=== PATIENT | female | born 1995 | race Caucasian/White ===

== ENCOUNTER 2016-12-07 11:55 | Inpatient (IN) | payer MEDICAID ==
--- NOTE | 2016-12-07 14:31 | PCM.LDHP ---
L&D History of Present Illness - General Date of Service: 12/07/16 Admit Problem/Dx: Admission Diagnosis/Problem Admission Diagnosis/Problem Source of Information: Patient History Limitations: Reports: No limitations - History of Present Illness Introduction:: Patient presents with chief complaint of contractions that started on the evening of 12/06/16. The time between them has varied but they were strong enough to keep her awake throughout the night. She rates them as a 3/10 on the pain scale. During monitoring contractions varied from every 3 to every 5 minutes. She reports having some bloody show this morning but no other vaginal leakage or change in discharge. She was seen at [facility] today where Dr. Romero performed membrane stripping. Location, : Reports: Uterus Quality: Reports: Ache Severity: moderate Associated Symptoms: Reports: vaginal bleeding. Denies: vaginal discharge, vaginal fluid - Related Data Allergies/Adverse Reactions: Allergies Allergy/AdvReac Type Severity Reaction Status Date / Time No Known Allergies Allergy Verified 12/07/16 12:12 Home Medications: Home Meds PNV95/Ferrous Fumarate/FA [ Tablet] 1 each PO DAILY 06/20/15 [History] Folic Acid [Folic Acid] 1 mg PO DAILY 11/20/16 [History] Past Medical History - Past Health History Medical/Surgical History: Denies Medical/Surgical History HEENT History: Reports: Other (see below) (recent history of acute lymphadenitis of the neck) Respiratory History: Reports: Asthma, Other (see below) Other Respiratory History: not treated for asthma since childhood Genitourinary History: Reports: Renal calculus, UTI, recurrent [employer] History: Reports: , Other (see below) (hx of dysmenorrhea) : 2 Para: 1 Neurological History: Reports: Migraines Psychiatric History: Reports: Anxiety Endocrine/Metabolic History: Reports: Other (see below) (hx of abnormal thyroid blood test) Hematologic History: Reports: Folic acid, Other (see below) Other Hematologic History: Carmen-[place] Virus 10/2016 Immunologic History: Reports: None - Infectious Disease History Infectious Disease History: Reports: Chicken pox, Other (see below) Other Infectious Disease History: unsure of other childhood diseases - Past Surgical History HEENT Surgical History: Reports: Other (see below) Other HEENT Surgeries/Procedures: biopsy of lymphnode Female Surgical History: Reports: None Oncologic Surgical History: Reports: Other (see below) Other Oncologic Surgeries/Procedures: biopsy of lymnode in Left neck Social & Family History - Family History Family Medical History: Noncontributory HEENT: Reports: Hearing impairment GI: Reports: Cirrhosis Neurological: Reports: Alzheimers disease, Parkinson's Endocrine/Metabolic: Reports: Other (see below) (mother has history of thyroid disease) Other Endocrine/Metabolic Family History: pt's mother has "thyroid problems" Oncologic: Reports: Breast, Other (see below) (Father from cancer.) - Tobacco Use Smoking Status *Q: Never Smoker Second Hand Smoke Exposure: No - Caffeine Use Caffeine Use: Reports: None - Recreational Drug Use Recreational Drug Use: No Drug Use in Last 12 Months: No Recreational Drug Type: Reports: Marijuana/Hashish Recreational Drug Use Frequency: Not Used In Over 6 Months - Living Situation & Occupation Living situation: Reports: with significant other 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 Working at [employer]--fulltime before baby born, now part- time in the mornings. Bud's [employer] watches Gisela at that time. Mom--Aliza Nesbitt; father is . Together since 2011. Delightful couple. SO: Bud, community services officer, born with a cleft lip--Dr. Maldonado did Z-plasty on him. Cell number: [phone]; [facility] 06-05-15. 08-13-15 Bud and his dad were elk hunting recently--Bud got his elk, but his dad didn't. b. Gisela born by VAVD. b. . 05-21-16 Expecting second child together on 12-18-16. [facility] H&P Review of Systems - Review of Systems: Review Of Systems: See Below General: Reports: no symptoms. Denies: fever, chills HEENT: Reports: no symptoms Pulmonary: Reports: No Symptoms. Denies: Shortness of Breath, Wheezing, Cough Cardiovascular: Reports: no symptoms Gastrointestinal: Reports: Constipation (some throughout last part of ) . Denies: Diarrhea, Nausea, Vomiting Genitourinary: Reports: no symptoms. Denies: dysuria, frequency, burning Musculoskeletal: Reports: no symptoms Skin: Reports: no symptoms Psychiatric: Reports: no symptoms Neurological: Reports: No Symptoms Hematologic/Lymphatic: Reports: no symptoms Immunologic: Reports: no symptoms L&D Exam - Exam Exam: See Below - Vital Signs Weight: 132 lb - OB Specific Contraction Intensity: Mild to Moderate movement: active heart tones: present heart tones per min: 140 Heart Rate (FHR) Variability: Moderate (6-25 bmp) Presentation: Vertex - Haider Score Haider Score Effacement: 51-70% Haider Score Dilation: 3-4 cm Haider Score 's Station: -2 - Exam General: alert, oriented HEENT: Conjunctiva clear, EOMI, Hearing intact, Mucosa moist & pink, Pupils reactive Neck: supple, trachea midline Lungs: Clear to auscultation, Normal respiratory effort Cardiovascular: regular rate, regular rhythm Abdomen: normal bowel sounds, soft Rectal Exam: Deferred Back Exam: normal inspection, full range of motion Extremities: normal inspection Skin: warm, dry, intact Neurological: cranial nerves intact Psychiatric: alert, normal affect, normal mood - Problem List (1) Blood type B- SNOMED Code(s): 603982246 ICD Code: Z67.21 - TYPE B BLOOD, RH NEGATIVE Status: Acute Current Visit : Yes (2) SNOMED Code(s): 74753611 ICD Code: Z33.1 - STATE, INCIDENTAL Status: Acute Current Visit : Yes Qualifiers: Weeks of gestation: 38 weeks Qualified Code(s): Z3A.38 - 38 weeks gestation of (3) Normal labor SNOMED Code(s): 62665485 ICD Code: O80 - ENCOUNTER FOR FULL-TERM UNCOMPLICATED DELIVERY; Z37.9 - OUTCOME OF DELIVERY, UNSPECIFIED Status: Acute Current Visit: Yes (4) Rubella immune SNOMED Code(s): 056316698 ICD Code: Z78.9 - OTHER SPECIFIED HEALTH STATUS Status: Acute Current Visit: Yes Problem List Initiated/Reviewed/Updated: Yes Orders Last 24hrs: Active Orders 24 hr Category Date Time Status OB Check [OM.PC] Click To Edit Care 12/07/16 12:00 Ordered Regular Diet [DIET] Diet 12/07/16 Lunch Active Assessment/Plan Comment:: Assesment 21 year old female at 38w3d Blood type B- Rubella immune RPR nonreactive HBsAg nonreactive hep C non reactive GBS negative Recent history of neck mass that was EBV+ followed by heme-onc and ENT clinically improved. Plan 1. Begin cares per unit protocol 2. Labs as ordered. 3. AROM if necessary 4. Pain management as needed - Patient indicates she would like an intrathecal when the times comes Mckenna Kwong [facility]
[2016-12-07] MEDS ORDERED: Sodium Chloride 0.9% 10 ML Syringe FLUSH PRN (14:46)
[2016-12-07] MEDS ORDERED: Misoprostol 400 MCG (4 X 100 MCG TAB) RECTAL PRN (14:46)
[2016-12-07] MEDS ORDERED: Carboprost Tromethamine 250 MCG/1 ML Amp IM PRN (14:46)
[2016-12-07] MEDS ORDERED: Ondansetron 4 MG/2 ML SDV IV PRN (14:46)
[2016-12-07] MEDS ORDERED: Acetaminophen 325 MG Tab PO PRN (14:46)
[2016-12-07] MEDS ORDERED: Methylergonovine 0.2 MG/1 ML Amp IM PRN (14:46)
[2016-12-07] MEDS ORDERED: Lidocaine 1% 30 ML SDV INJECT PRN (14:46)
[2016-12-07] MEDS ORDERED: Lactated Ringers 500 ML IV ONE (14:46)
[2016-12-07] MEDS ORDERED: Oxytocin/Normal Saline 30 UNIT/500 ML BAG IV SCH (15:00)
[2016-12-07] MEDS: Lactated Ringers 1,000 ML IV SCH ×2 (21:27→22:47)
[2016-12-07] MEDS ORDERED: Sodium Chloride 0.9% 10 ML Syringe ONE (23:00)
[2016-12-07] MEDS ORDERED: fentaNYL 100 MCG/2 ML SDV ONE (23:05)
--- NOTE | 2016-12-07 23:42 | PCM.SN ---
- Free Text/Narrative Note: called to place intrathecal anesthetic for this laboring mom: After identifying, time out, with patient in sitting postition, sterile prep and drape. Skin wheal at L3-4 with 1% lidocaine, LP X 1 at L3-4 with 24 gauge pencan spinal needle. Positive free flowing CSF, no heme, no paresthesia, then .8ML (6mg)mpf hyperbaric spinal 7.5% marcaine, plus 10 mcg mpf sufenta, plus 10 mcg mpf fentanyl, plus 1.2 ml preservative free NaCl and 0.1ml epi injected intrathecal. Pt reported pain relief during next contractions. Preop VS = T 98.9, 91/53, Hr 70's FHT's 130's WBC 10.3, PLT 273
[2016-12-08] MEDS ORDERED: diphenhydrAMINE 50 MG/ML SDV IVPUSH PRN (00:20)
[2016-12-08] MEDS: Lactated Ringers 1,000 ML IV SCH (00:34)
[2016-12-08] MEDS ORDERED: Oxytocin 10 Units/1 ML SDV IM PRN (02:56)
[2016-12-08] MEDS ORDERED: Benzocaine/Menthol 20%-0.5% Spray 56 GM Canister TOP PRN (02:56)
[2016-12-08] MEDS ORDERED: Simethicone 80 MG Tab.Chew PO PRN (02:56)
[2016-12-08] MEDS ORDERED: Sodium Chloride 0.9% 10 ML Syringe FLUSH PRN (02:56)
--- NOTE | 2016-12-08 02:57 | PCM.DEL ---
L & D Note - General Info Date of Service: 12/08/16 Mother's Due Date: 12/18/16 - Delivery Note Labor: spontaneous, augmented by ARM Infant Delivery Method: Spontaneous Vaginal Delivery Presentation: Left Occiput Anterior (MATT) Nuchal cord: none Anesthesia Type: None Amniotic Fluid Description: Clear Episiotomy Type: None Laceration: none Placenta: intact, spontaneous Cord: 3 vessels Estimated blood loss: 200 [place]: suctioned, bulb syringe Provider: Agustina Romero Score 1 min: 7 Score 5 min: 9 Second Stage Interventions: Reports: Laboring Down, Pushing, Stirrups/Leg Supports Delivery Comments (Free Text/Narrative):: Patient delivered prior to physician being in the room. Dr. rBandon arrived prior to delivery of placenta. Agustina is a 21 year old now GBS negative mother that received an intrathecal around at approximately 1130. At 0227 she delivered a viable female via a that was augmented by AROM at approximately 1500 and pitocin that was started at approximately 9. was in MATT position, she did have a hand by her face that required that her posterior shoulder delivered first followed by her anterior. Infants apgars were 7 and 9 she was dried and stimulated with bulb suction and placed skin to skin. Cord was then clamped and cut by Father of the baby. Umbilical was 3 vessel and cord was sent to lab. Placenta was delivered 16 minutes after delivery and was found to be intact. Pitocin was started at this point following the unit protocols. There were no tears noted on exam. EBL was approximately 200 mL No complications noted at this time. Mother and Infant are in stable condition. Mother has had uptrending temperatures. We will continue monitoring closely. Induction Criteria - Augmentation Estimated Pelvis: Reports: Adequate weight estimated:: Reports: AGA Reassuring monitoring strip: Yes Absence of tachy systole: Yes - General Info Date of Service: 12/08/16 Admission Dx/Problem (Free Text): Admission Diagnosis/Problem Admission Diagnosis/Problem (1) Blood type B- SNOMED Code(s): 162691174 ICD Code: Z67.21 - TYPE B BLOOD, RH NEGATIVE Status: Acute Current Visit : Yes (2) SNOMED Code(s): 09640910 ICD Code: Z33.1 - STATE, INCIDENTAL Status: Acute Current Visit : Yes Qualifiers: Weeks of gestation: 38 weeks Qualified Code(s): Z3A.38 - 38 weeks gestation of (3) Normal labor SNOMED Code(s): 97207085 ICD Code: O80 - ENCOUNTER FOR FULL-TERM UNCOMPLICATED DELIVERY; Z37.9 - OUTCOME OF DELIVERY, UNSPECIFIED Status: Acute Current Visit: Yes (4) Rubella immune SNOMED Code(s): 387626712 ICD Code: Z78.9 - OTHER SPECIFIED HEALTH STATUS Status: Acute Current Visit: Yes Problem List Initiated/Reviewed/Updated: Yes Assesment 21 year old female at 38w3d Blood type B- Rubella immune RPR nonreactive HBsAg nonreactive hep C non reactive GBS negative Recent history of neck mass that was EBV+ followed by heme-onc and ENT clinically improved. Subjective Update: Patient has done well throughout labor. She received an intrathecal at approximately 2300 on 12/07/16, Intrathecal did wear off a bit prior to delivery. Patient plans on infant. - Review of Systems General: Reports: Fever HEENT: Reports: no symptoms Pulmonary: Reports: no symptoms. Denies: cough, wheezing Cardiovascular: Reports: No Symptoms Gastrointestinal: Reports: No symptoms. Denies: Diarrhea, Nausea, Vomiting Genitourinary: Reports: no symptoms Musculoskeletal: Reports: no symptoms Skin: Reports: no symptoms Neurological: Reports: No Symptoms Psychiatric: Reports: no symptoms - Patient Data Vitals - most recent: Last Vital Signs Temp 98.9 F 12/07/16 22:45 Pulse 73 12/07/16 23:25 Resp 16 12/07/16 23:25 BP 108/65 12/07/16 23:25 Pulse Ox 97 12/07/16 23:25 Weight - most recent: 132 lb I&O - last 24 hours: Intake & Output 12/07/16 12/07/16 12/08/16 14:59 22:59 06:59 Intake Total 1000 1000 Balance 1000 1000 Lab Results last 24 hrs: Laboratory Results - last 24 hr 12/07/16 Range/Units 15:04 WBC 10.3 H (5.0-10.0) 10^3/uL RBC 3.12 L (4.2-5.4) 10^6/uL Hgb 8.9 L (12.0-16.0) g/dL Hct 27.3 L (37.0-47.0) % MCV 87.5 (80-100) fL MCH 28.5 (27.0-34.0) pg MCHC 32.6 L (33.0-35.0) g/dL Plt Count 273 (150-450) 10^3/uL Med Orders - Current: Current Medications Acetaminophen (Tylenol) 650 mg PO Q4H PRN PRN Reason: Pain (Mild 1-3) and fever Carboprost Tromethamine (Hemabate Ds) 250 mcg IM ASDIRECTED PRN PRN Reason: HEMORRHAGE Diphenhydramine HCl (Benadryl) 25 mg IVPUSH ONETIME PRN PRN Reason: Itching Last Admin: 12/08/16 00:34 Dose: 25 mg Lactated Ringer's (Ringers, Lactated) 1,000 mls @ 125 mls/hr IV ASDIRECTED BLAIRE Last Admin: 12/08/16 00:34 Dose: 125 mls/hr Oxytocin/Sodium Chloride (Pitocin In Ns 30 Unit/500 Ml) 30 unit in 500 mls @ 2 mls/hr IV TITRATE BLAIRE; 2 MUNITS/MIN PRN Reason: Protocol Last Titration: 12/07/16 23:41 Dose: 3 mls/hr Lidocaine HCl (Xylocaine-Mpf 1%) 10 ml INJECT ASDIRECTED PRN PRN Reason: Perineal Repair Methylergonovine Maleate (Methergine) 0.2 mg IM ASDIRECTED PRN PRN Reason: Hemorrhage Misoprostol (Cytotec) 800 mcg RECTAL ASDIRECTED PRN PRN Reason: Hemorrhage Ondansetron HCl (Zofran) 4 mg IV Q4H PRN PRN Reason: Nausea/Vomiting Last Admin: 12/07/16 22:41 Dose: 4 mg Sodium Chloride (Saline Flush) 10 ml FLUSH ASDIRECTED PRN PRN Reason: Keep Vein Open Discontinued Medications Fentanyl (Sublimaze) Confirm Administered Dose 100 mcg .ROUTE .STK-MED ONE Stop: 12/07/16 23:06 Lactated Ringer's (Ringers, Lactated) 500 mls @ 999 mls/hr IV .BOLUS ONE Stop: 12/07/16 15:16 Sodium Chloride (Saline Flush) Confirm Administered Dose 10 ml .ROUTE .STK-MED ONE Stop: 12/07/16 23:01 Sufentanil Citrate (Sufenta) Confirm Administered Dose 50 mcg .ROUTE .[facility]-MED ONE Stop: 12/07/16 23:07 - Exam General: alert, oriented, cooperative HEENT: Pupils equal, Pupils reactive, Mucous membr. moist/pink Neck: supple Lungs: Clear to auscultation, Normal respiratory effort Cardiovascular: Regular Rate, Regular Rhythm Abdomen: bowel sounds present, soft, no distension (Female) Exam: Normal external exam Back Exam: normal inspection, full range of motion Extremities: no edema Skin: warm, dry, intact Neurological: no new focal deficit Psy/Mental Status: alert, normal affect, normal mood - Problem List & Annotations (1) Blood type B- SNOMED Code(s): 071606288 Code(s): Z67.21 - TYPE B BLOOD, RH NEGATIVE Status: Acute Current Visit: Yes (2) SNOMED Code(s): 66851647 Code(s): Z33.1 - STATE, INCIDENTAL Status: Acute Current Visit: Yes Qualifiers: Weeks of gestation: 38 weeks Qualified Code(s): Z3A.38 - 38 weeks gestation of (3) Normal labor SNOMED Code(s): 92996323 Code(s): O80 - ENCOUNTER FOR FULL-TERM UNCOMPLICATED DELIVERY; Z37.9 - OUTCOME OF DELIVERY, UNSPECIFIED Status: Acute Current Visit: Yes (4) Rubella immune SNOMED Code(s): 548494255 Code(s): Z78.9 - OTHER SPECIFIED HEALTH STATUS Status: Acute Current Visit: Yes (5) Delivered after artificial rupture of membranes SNOMED Code(s): 387984511 Code(s): HEH0862 - Status: Acute Current Visit: Yes - Problem List Review Problem List Initiated/Reviewed/Updated: Yes - My Orders Last 24 Hours: My Active Orders 12/07/16 14:46 Patient Status [ADT] Routine Communication Order [RC] ASDIRECTED Heart Tones [RC] PER UNIT ROUTINE Notify Provider Vital Signs OB [RC] ASDIRECTED Notify Provider [RC] PRN Pump Management, Intrathecal [RC] ASDIRECTED Up ad Kaylen [RC] ASDIRECTED Vital Signs [RC] PER UNIT ROUTINE Acetaminophen [Tylenol] 650 mg PO Q4H PRN Carboprost Tromethamine [Hemabate DS] 250 mcg IM ASDIRECTED PRN Lidocaine 1% [Xylocaine-MPF 1%] 10 ml INJECT ASDIRECTED PRN Methylergonovine [Methergine] 0.2 mg IM ASDIRECTED PRN Misoprostol [Cytotec] 800 mcg RECTAL ASDIRECTED PRN Ondansetron [Zofran] 4 mg IV Q4H PRN Sodium Chloride 0.9% [Saline Flush] 10 ml FLUSH ASDIRECTED PRN Saline Lock Insert [OM.PC] Routine Resuscitation Status Routine 12/07/16 15:00 Lactated Ringers [Ringers, Lactated] 1,000 ml IV ASDIRECTED Oxytocin/Normal Saline [Pitocin in NS 30 UNIT/500 ML] 30 unit in 500 ml IV TITRATE - Assessment Assessment:: Assesment 21 year old female now that delivered at 38w4d Blood type B- Rubella immune RPR nonreactive HBsAg nonreactive hep C non reactive GBS negative Recent history of neck mass that was EBV+ followed by heme-onc and ENT clinically improved - Plan Plan:: Plan 1. Begin cares per unit protocol 2. Due to low Hgb will repeat labs. 3. to be consulted as needed 4. Pain management as needed Mckenna Kwong MSIII
--- NOTE | 2016-12-08 09:24 | PCM.PNPP ---
- General Info Date of Service: 12/08/16 Admission Dx/Problem (Free Text): Admission Diagnosis/Problem Admission Diagnosis/Problem (1) Blood type B- SNOMED Code(s): 048128503 ICD Code: Z67.21 - TYPE B BLOOD, RH NEGATIVE Status: Acute Current Visit : Yes (2) SNOMED Code(s): 77117573 ICD Code: Z33.1 - STATE, INCIDENTAL Status: Acute Current Visit : Yes Qualifiers: Weeks of gestation: 38 weeks Qualified Code(s): Z3A.38 - 38 weeks gestation of (3) Normal labor SNOMED Code(s): 97696941 ICD Code: O80 - ENCOUNTER FOR FULL-TERM UNCOMPLICATED DELIVERY; Z37.9 - OUTCOME OF DELIVERY, UNSPECIFIED Status: Acute Current Visit: Yes (4) Rubella immune SNOMED Code(s): 216294785 ICD Code: Z78.9 - OTHER SPECIFIED HEALTH STATUS Status: Acute Current Visit: Yes Problem List Initiated/Reviewed/Updated: Yes Assesment 21 year old female at 38w3d Blood type B- Rubella immune RPR nonreactive HBsAg nonreactive hep C non reactive GBS negative Recent history of neck mass that was EBV+ followed by heme-onc and ENT clinically improved. Subjective Update: Patient has done well overnight, temperature has remained stable. She reports being able to get up and move around. has been off and on consult has been made and Elva is visiting with them this morning Functional Status: Reports: pain controlled, tolerating diet, ambulating, urinating - Review of Systems General: Reports: No Symptoms. Denies: Fever, Chills HEENT: Reports: no symptoms Pulmonary: Reports: no symptoms. Denies: shortness of breath, cough, wheezing Cardiovascular: Reports: No Symptoms Gastrointestinal: Reports: No symptoms. Denies: Nausea, Vomiting Genitourinary: Reports: no symptoms. Denies: dysuria Musculoskeletal: Reports: no symptoms Skin: Reports: no symptoms Neurological: Reports: No Symptoms Psychiatric: Reports: no symptoms - General Info Date of Service: 12/08/16 - Patient Data Vital Signs - most recent: Last Vital Signs Temp 98.5 F 12/08/16 08:50 Pulse 88 12/08/16 08:50 Resp 16 12/08/16 08:50 BP 89/63 L 12/08/16 08:50 Pulse Ox 100 12/08/16 08:50 Weight - most recent: 132 lb I&O - last 24 hours: Intake & Output 12/07/16 12/08/16 12/08/16 22:59 06:59 14:59 Intake Total 1000 1500 950 Balance 1000 1500 950 Lab Results - last 24 hrs: Laboratory Results - last 24 hr 12/07/16 Range/Units 15:04 WBC 10.3 H (5.0-10.0) 10^3/uL RBC 3.12 L (4.2-5.4) 10^6/uL Hgb 8.9 L (12.0-16.0) g/dL Hct 27.3 L (37.0-47.0) % MCV 87.5 (80-100) fL MCH 28.5 (27.0-34.0) pg MCHC 32.6 L (33.0-35.0) g/dL Plt Count 273 (150-450) 10^3/uL Med Orders - Current: Current Medications Acetaminophen (Tylenol) 650 mg PO Q4H PRN PRN Reason: Pain (Mild 1-3) and fever Benzocaine/Menthol (Dermoplast Pain Relief [place]) 0 gm TOP Q4H PRN PRN Reason: Perineal comfort measures Carboprost Tromethamine (Hemabate Ds) 250 mcg IM ASDIRECTED PRN PRN Reason: HEMORRHAGE Diphenhydramine HCl (Benadryl) 25 mg IVPUSH ONETIME PRN PRN Reason: Itching Last Admin: 12/08/16 00:34 Dose: 25 mg Lactated Ringer's (Ringers, Lactated) 1,000 mls @ 125 mls/hr IV ASDIRECTED BLAIRE Last Admin: 12/08/16 00:34 Dose: 125 mls/hr Oxytocin/Sodium Chloride (Pitocin In Ns 30 Unit/500 Ml) 30 unit in 500 mls @ 2 mls/hr IV TITRATE BLAIRE; 2 MUNITS/MIN PRN Reason: Protocol Last Titration: 12/08/16 05:19 Dose: 0 mls/hr Ibuprofen (Motrin 100 Mg/5 Ml Susp) 600 mg PO Q6H PRN PRN Reason: Pain Methylergonovine Maleate (Methergine) 0.2 mg IM ASDIRECTED PRN PRN Reason: Hemorrhage Misoprostol (Cytotec) 800 mcg RECTAL ASDIRECTED PRN PRN Reason: Hemorrhage Oxytocin (Pitocin) 10 unit IM ONETIME PRN PRN Reason: Bleeding Simethicone (Simethicone) 80 mg PO Q4H PRN PRN Reason: Gas Sodium Chloride (Saline Flush) 10 ml FLUSH ASDIRECTED PRN PRN Reason: Keep Vein Open Sodium Chloride (Saline Flush) 10 ml FLUSH ASDIRECTED PRN PRN Reason: Keep Vein Open Discontinued Medications Fentanyl (Sublimaze) Confirm Administered Dose 100 mcg .ROUTE .STK-MED ONE Stop: 12/07/16 23:06 Lactated Ringer's (Ringers, Lactated) 500 mls @ 999 mls/hr IV .BOLUS ONE Stop: 12/07/16 15:16 Last Admin: 12/08/16 05:07 Dose: Not Given Lidocaine HCl (Xylocaine-Mpf 1%) 10 ml INJECT ASDIRECTED PRN PRN Reason: Perineal Repair Ondansetron HCl (Zofran) 4 mg IV Q4H PRN PRN Reason: Nausea/Vomiting Last Admin: 12/07/16 22:41 Dose: 4 mg Sodium Chloride (Saline Flush) Confirm Administered Dose 10 ml .ROUTE .STK-MED ONE Stop: 12/07/16 23:01 Sufentanil Citrate (Sufenta) Confirm Administered Dose 50 mcg .ROUTE .STK-MED ONE Stop: 12/07/16 23:07 - Interaction Infant Disposition, : at Bedside Infant Interaction: Holding Infant Feeding: Attempted ; Nursed Fair/Poor Support Person: Mother, Significant Other - Recovery Exam Fundal Tone: Firm Fundal Level: 2 Fingerbreadths Below Umbilicus Fundal Placement: Midline Lochia Amount: Scant Lochia Color: Rubra/Red Perineum Description: Intact, Minimal Bruising/Swelling Episiotomy/Laceration: None Bladder Status: Voiding Urinary Elimination: Voided - Exam General: alert, oriented, cooperative HEENT: Pupils equal Neck: supple Lungs: Clear to auscultation, Normal respiratory effort Cardiovascular: Regular Rate, Regular Rhythm Abdomen: bowel sounds present, soft, no distension Extremities: no edema Skin: warm, dry, intact Neurological: no new focal deficit Psy/Mental Status: alert, normal affect, normal mood - Problem List & Annotations (1) Blood type B- SNOMED Code(s): 294649445 Code(s): Z67.21 - TYPE B BLOOD, RH NEGATIVE Status: Acute Current Visit: Yes (2) SNOMED Code(s): 37136447 Code(s): Z33.1 - STATE, INCIDENTAL Status: Acute Current Visit: Yes Qualifiers: Weeks of gestation: 38 weeks Qualified Code(s): Z3A.38 - 38 weeks gestation of (3) Normal labor SNOMED Code(s): 28484985 Code(s): O80 - ENCOUNTER FOR FULL-TERM UNCOMPLICATED DELIVERY; Z37.9 - OUTCOME OF DELIVERY, UNSPECIFIED Status: Acute Current Visit: Yes (4) Rubella immune SNOMED Code(s): 056570475 Code(s): Z78.9 - OTHER SPECIFIED HEALTH STATUS Status: Acute Current Visit: Yes (5) Delivered after artificial rupture of membranes SNOMED Code(s): 231374300 Code(s): SUD2121 - Status: Acute Current Visit: Yes - Problem List Review Problem List Initiated/Reviewed/Updated: Yes - My Orders Last 24 Hours: My Active Orders 12/07/16 14:46 Patient Status [ADT] Routine Acetaminophen [Tylenol] 650 mg PO Q4H PRN Carboprost Tromethamine [Hemabate DS] 250 mcg IM ASDIRECTED PRN Methylergonovine [Methergine] 0.2 mg IM ASDIRECTED PRN Misoprostol [Cytotec] 800 mcg RECTAL ASDIRECTED PRN Sodium Chloride 0.9% [Saline Flush] 10 ml FLUSH ASDIRECTED PRN Saline Lock Insert [OM.PC] Routine Resuscitation Status Routine 12/07/16 15:00 Lactated Ringers [Ringers, Lactated] 1,000 ml IV ASDIRECTED Oxytocin/Normal Saline [Pitocin in NS 30 UNIT/500 ML] 30 unit in 500 ml IV TITRATE - Assessment Assessment:: Assesment 21 year old female now that delivered at 38w4d Blood type B- Rubella immune RPR nonreactive HBsAg nonreactive hep C non reactive GBS negative Recent history of neck mass that was EBV+ followed by heme-onc and ENT clinically improved - Plan Plan:: Plan 1. Continue cares per unit protocol 2. Due to low Hgb will repeat labs - not drawn yet. 3. Administer RhoGam 4. has been consulted 5. Pain management as needed 6. Plan for discharge 12/10/16 Mckenna HEWITTII
[2016-12-08] MEDS: Ibuprofen Susp 100 MG/5 ML 5 ML UD Cup PO PRN ×2 (10:13→19:57)
[2016-12-08] MEDS ORDERED: fentaNYL 100 MCG/2 ML SDV ITHECAL ONE (11:35)
--- NOTE | 2016-12-08 14:09 | PCM.SN ---
- Free Text/Narrative Note: post anesthesia intrathecal note. Pt states she was comfortable after the intrathecal and for delivery. She states that today she has very minimal back pain, but not requiring medications. No c/o N&V, tolerating p.o.'s well. No c/ o PDPH. Full return of function and sensation to lower extremities. Temp 37.5, HR 80, B/P 98/42, RR 16. No post anesthesia complications noted.
[2016-12-09] MEDS: Ibuprofen Susp 100 MG/5 ML 5 ML UD Cup PO PRN ×2 (09:56→21:48)
--- NOTE | 2016-12-09 12:33 | PCM.SN ---
- Free Text/Narrative Note: DOS: 12-09-16 PPD #1 doing well vaginal delivery yesterday. flow decreasing cramping improved vvs afebrile nursing eating, voiding ambulating. plans on going home tomorrow All questions answered. b
[2016-12-10 07:18] VITALS: BP 106/74
--- NOTE | 2016-12-10 09:47 | PCM.DCSUM1 ---
Discharge Summary - Hospital Course Free Text/Narrative:: discharge note: date of discharge: 12-10-16 Agustina is a delightful 21yo G2 now P2 with 2 days ago @ 38w4d viable female 6lb 6oz with APGARs 7 & 9 B-, received RhoGam as baby is B positive RI, GBS negative Intact perineum. doing well eating, ambulating, voiding without difficulty afebrile and VSS ready for discharge. condition on discharge: good Pt anemic on admit--8.9, with discharge hgb of 8.2--asx, will have iron supplementation and PNV daily follow up 6-8 weeks for check, and sooner prn. All questions answered. b HPI Initial Comments: see delivery note--presented in early labor. - Discharge Data Discharge Date: 12/10/16 (discharge) Discharge Disposition: Home, Self-Care 01 Condition: Good - Discharge Diagnosis/Problem(s) (1) Anemia affecting SNOMED Code(s): 75457919 ICD Code: O99.019 - ANEMIA COMPLICATING , UNSPECIFIED TRIMESTER Status: Acute Current Visit: Yes - Patient Summary/Data Consults: Consultations 12/08/16 02:56 Consult to Upsetting Machine Operator [CONS] Routine - Patient Instructions Activity: As Tolerated Driving: May Drive Today Showering/Bathing: May Shower Notify Provider of: Fever, Increased Pain Other/Special Instructions: follow up 6-8 weeks check and as needed. - Discharge Plan Home Medications: Home Meds PNV95/Ferrous Fumarate/FA [ Tablet] 1 each PO DAILY 06/20/15 [History] Folic Acid [Folic Acid] 1 mg PO DAILY 11/20/16 [History] - Discharge Summary/Plan Comment DC Time >30 min.: No Discharge Summary/Plan Comment: discharge note: date of discharge: 12-10-16 Agustina is a delightful 21yo G2 now P2 with 2 days ago @ 38w4d viable female infant 6lb 6oz with APGARs 7 & 9 B-, received RhoGam as baby is B positive RI, GBS negative Intact perineum. doing well eating, ambulating, voiding without difficulty afebrile and VSS ready for discharge. condition on discharge: good Pt anemic on admit--8.9, with discharge hgb of 8.2--asx, will have iron supplementation and PNV daily follow up 6-8 weeks for check, and sooner prn. All questions answered. hmb - Patient Data Vitals - Most Recent: Last Vital Signs Temp 98.4 F 12/10/16 07:18 Pulse 59 L 12/10/16 07:18 Resp 18 12/10/16 07:18 BP 106/74 12/10/16 07:18 Pulse Ox 100 12/10/16 07:18 Weight - Most Recent: 132 lb I&O - Last 24 hours: Intake & Output 12/09/16 12/10/16 12/10/16 22:59 06:59 14:59 Intake Total 600 Balance 600 Lab Results - Last 24 hrs: Laboratory Results - last 24 hr 12/08/16 Range/Units 07:06 Blood Type B NEGATIVE Gel Antibody Screen Positive Antibody Identification Anti-D Rhogam Indicated Yes, baby rh pos H Med Orders - Current: Current Medications Acetaminophen (Tylenol) 650 mg PO Q4H PRN PRN Reason: Pain (Mild 1-3) and fever Benzocaine/Menthol (Dermoplast Pain Relief [place]) 0 gm TOP Q4H PRN PRN Reason: Perineal comfort measures Carboprost Tromethamine (Hemabate Ds) 250 mcg IM ASDIRECTED PRN PRN Reason: HEMORRHAGE Diphenhydramine HCl (Benadryl) 25 mg IVPUSH ONETIME PRN PRN Reason: Itching Last Admin: 12/08/16 00:34 Dose: 25 mg Lactated Ringer's (Ringers, Lactated) 1,000 mls @ 125 mls/hr IV ASDIRECTED BLAIRE Last Admin: 12/08/16 00:34 Dose: 125 mls/hr Oxytocin/Sodium Chloride (Pitocin In Ns 30 Unit/500 Ml) 30 unit in 500 mls @ 2 mls/hr IV TITRATE BLAIRE; 2 MUNITS/MIN PRN Reason: Protocol Last Titration: 12/08/16 05:19 Dose: 0 mls/hr Ibuprofen (Motrin 100 Mg/5 Ml Susp) 600 mg PO Q6H PRN PRN Reason: Pain Last Admin: 12/09/16 21:48 Dose: 600 mg Methylergonovine Maleate (Methergine) 0.2 mg IM ASDIRECTED PRN PRN Reason: Hemorrhage Misoprostol (Cytotec) 800 mcg RECTAL ASDIRECTED PRN PRN Reason: Hemorrhage Oxytocin (Pitocin) 10 unit IM ONETIME PRN PRN Reason: Bleeding Simethicone (Simethicone) 80 mg PO Q4H PRN PRN Reason: Gas Sodium Chloride (Saline Flush) 10 ml FLUSH ASDIRECTED PRN PRN Reason: Keep Vein Open Sodium Chloride (Saline Flush) 10 ml FLUSH ASDIRECTED PRN PRN Reason: Keep Vein Open Discontinued Medications Fentanyl (Sublimaze) Confirm Administered Dose 100 mcg .ROUTE .STK-MED ONE Stop: 12/07/16 23:06 Lactated Ringer's (Ringers, Lactated) 500 mls @ 999 mls/hr IV .BOLUS ONE Stop: 12/07/16 15:16 Last Admin: 12/08/16 05:07 Dose: Not Given Lidocaine HCl (Xylocaine-Mpf 1%) 10 ml INJECT ASDIRECTED PRN PRN Reason: Perineal Repair Ondansetron HCl (Zofran) 4 mg IV Q4H PRN PRN Reason: Nausea/Vomiting Last Admin: 12/07/16 22:41 Dose: 4 mg Sodium Chloride (Saline Flush) Confirm Administered Dose 10 ml .ROUTE .STK-MED ONE Stop: 12/07/16 23:01 Sufentanil Citrate (Sufenta) Confirm Administered Dose 50 mcg .ROUTE .STK-MED ONE Stop: 12/07/16 23:07 *Q Meaningful Use (DIS) - VTE *Q VTE Criteria *Q: - Stroke *Q Stroke Criteria *Q: - AMI *Q AMI Criteria *Q:
== END 2016-12-10 11:36 | disposition home or self-care (01) | DRG 775 ==
LOC: DL.OBCHECK 11:55 → DL.OB 14:46 → OBSVTOIN 12-08 02:27
PROVIDERS: ADMIT Family Medicine; ATTEND Family Medicine
PROC: 10E0XZZ Delivery of Products of Conception, External Approach (ICD-10-PCS; principal; 2016-12-08)
PROC: 10907ZC Drainage of Amniotic Fluid, Therapeutic from Products of Conception, Via Natural or Artificial Opening (ICD-10-PCS; 2016-12-08)
PROC: 00HU33Z Insertion of Infusion Device into Spinal Canal, Percutaneous Approach (ICD-10-PCS; 2016-12-08)
PROC: 3E0R3CZ (ICD-10-PCS; 2016-12-08)
DX: O80 Encounter for full-term uncomplicated delivery (principal); Z3A.38 38 weeks gestation of pregnancy; Z37.0 Single live birth
CPT/HCPCS: 36415; 85027; 85461; 86850; 86870; 86900; 86901; A9270-GY; J1200; J2405; J2590; J2790; J3010; J7120

== ENCOUNTER 2021-08-13 15:52 | Emergency (ER) | payer MEDICAID ==
[2021-08-13 16:18] VITALS: BP 100/73; PULSE 86
[2021-08-13 16:51] LABS: CORONAVIRUS COVID-19 NAA NEGATIVE (NEGATIVE)
[2021-08-13] MEDS ORDERED: Sodium Chloride 0.9% 1,000 ML IV ONE (17:39)
[2021-08-13] MEDS ORDERED: Oseltamivir 75 MG Cap PO ONE (17:39)
--- NOTE | 2021-08-13 17:49 | EDM.PDOC ---
ED HPI GENERAL MEDICAL PROBLEM - General Chief Complaint: Respiratory Problem Stated Complaint: HEADAHCE AND THROWING UP,BODY ACHES Time Seen by Provider: 08/13/21 17:00 Source of Information: Reports: Patient History Limitations: Reports: No Limitations - History of Present Illness INITIAL COMMENTS - FREE TEXT/NARRATIVE: This 26 yo female patient reports to the ED with a 3 day history of headaches, body aches, a stuffed up nose and generalized weakness. The patient reports she has had the COVID vaccination, but has not had a flu vaccination. Duration: Day(s):, Constant, Getting Worse Location: Reports: Head, Chest Quality: Reports: Other Severity: Moderate Improves with: Reports: None Worsens with: Reports: None Context: Reports: Other Associated Symptoms: Reports: No Other Symptoms headache Pain Score (Numeric/FACES): 7 - Related Data Allergies Allergy/AdvReac Type Severity Reaction Status Date / Time No Known Allergies Allergy Verified 08/13/21 17:20 Home Meds: Home Meds . [No Known Home Meds] 08/13/21 [History] Past Medical History - Past Health History Medical/Surgical History: Denies Medical/Surgical History HEENT History: Reports: Other (See Below) Other HEENT History: acute lymphadenitis of neck Cardiovascular History: Reports: None Respiratory History: Reports: Asthma, Other (See Below) Other Respiratory History: not treated for asthma since childhood Gastrointestinal History: Reports: None Genitourinary History: Reports: Renal Calculus, UTI, Recurrent ASSET PROTECTION GREETER History: Reports: , Other (See Below) Other ASSET PROTECTION GREETER History: heavy menses, dysmenorrhea Musculoskeletal History: Reports: None Neurological History: Reports: Migraines Psychiatric History: Reports: Anxiety Endocrine/Metabolic History: Reports: Other (See Below) Other Endocrine/Metabolic History: abnormal thyroid levels Hematologic History: Reports: Folic Acid, Other (See Below) 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 Immunologic History: Reports: None Oncologic (Cancer) History: Reports: None Dermatologic History: Reports: None - Infectious Disease History Infectious Disease History: Reports: Chicken Pox, Other (See Below) Other Infectious Disease History: unsure of other childhood diseases - Past Surgical History HEENT Surgical History: Reports: Other (See Below) Other HEENT Surgeries/Procedures: biopsy of lymphnode Female Surgical History: Reports: None Oncologic Surgical History: Reports: Other (See Below) Other Oncologic Surgeries/Procedures: biopsy of lymnode in Left neck Social & Family History - Family History Family Medical History: No Pertinent Family History HEENT: Reports: Hearing Impairment GI: Reports: Cirrhosis Neurological: Reports: Alzheimers Disease, Parkinson's Endocrine/Metabolic: Reports: Other (See Below) Other Endocrine/Metabolic Family History: pt's mother has "thyroid problems" Oncologic: Reports: Breast, Other (See Below) - Tobacco Use Tobacco Use Status *Q: Never Tobacco User - Caffeine Use Caffeine Use: Reports: None - Recreational Drug Use Recreational Drug Use: No - Living Situation & Occupation Living situation: Reports: with Significant Other Occupation: Employed ED ROS GENERAL - Review of Systems Review Of Systems: Comprehensive ROS is negative, except as noted in HPI. ED EXAM, GENERAL - Physical Exam Exam: See Below Exam Limited By: No Limitations General Appearance: Alert, WD/WN, Moderate Distress Eye Exam: Bilateral Eye: EOMI, Normal Inspection, PERRL Ears: Normal External Exam, Normal Canal, Hearing Grossly Normal, Normal TMs Nose: Normal Inspection, Normal Mucosa, No Blood Throat/Mouth: Normal Inspection, Normal Lips, Normal Teeth, Normal Gums, Normal Oropharynx, Normal Voice, No Airway Compromise Head: Atraumatic, Normocephalic Neck: Normal Inspection, Supple, Non-Tender, Full Range of Motion Respiratory/Chest: No Respiratory Distress, Lungs Clear, Normal Breath Sounds, No Accessory Muscle Use, Chest Non-Tender Cardiovascular: Normal Peripheral Pulses, Regular Rate, Rhythm, No Edema, No Gallop, No JVD, No Murmur, No Rub GI/Abdominal: Normal Bowel Sounds, Soft, Non-Tender, No Organomegaly, No Distention, No Abnormal Bruit, No Mass (Female) Exam: Deferred Rectal (Female) Exam: Deferred Back Exam: Normal Inspection, Full Range of Motion, NT Extremities: Normal Inspection, Normal Range of Motion, Non-Tender, Normal Capillary Refill, No Pedal Edema Neurological: Alert, Oriented, CN II-XII Intact, Normal Cognition, Normal Gait, Normal Reflexes, No Motor/Sensory Deficits Psychiatric: Normal Affect, Normal Mood Skin Exam: Warm, Dry, Intact, Normal Color, No Rash Lymphatic: No Adenopathy Course - Vital Signs Last Recorded V/S: Last Vital Signs Temp 99.3 F 08/13/21 16:14 Pulse 86 08/13/21 16:14 Resp 20 08/13/21 16:14 BP 100/73 08/13/21 16:14 Pulse Ox 95 08/13/21 16:14 - Orders/Labs/Meds Orders: Active Orders 24 hr Category Date Time Status Sodium Chloride 0.9% [Normal Saline] 1,000 ml Med 08/13/21 17:39 Ordered IV .BOLUS Medication Orders Sodium Chloride (Normal Saline) 1,000 mls @ 999 mls/hr IV .BOLUS ONE Stop: 08/13/21 18:39 Labs: Laboratory Tests 08/13/21 Range/Units 16:02 Influenza Type A RNA Positive H (NEGATIVE) Influenza Type B RNA Negative (NEGATIVE) SARS-CoV-2 RNA (PARVEEN) Negative (NEGATIVE) Meds: Medications Generic Name Dose Route Start Last Admin Trade Name Freq PRN Reason Stop Dose Admin Sodium Chloride 1,000 mls @ 999 mls/hr 08/13/21 17:39 Normal Saline IV 08/13/21 18:39 .BOLUS ONE Discontinued Medications Generic Name Dose Route Start Last Admin Trade Name Freq PRN Reason Stop Dose Admin Oseltamivir Phosphate 75 mg 08/13/21 17:39 Oseltamivir 75 Mg Cap PO 08/13/21 17:40 ONETIME ONE Departure - Departure Time of Disposition: 17:51 Disposition: Home, Self-Care 01 Condition: Fair Clinical Impression: Influenza A - Discharge Information *PRESCRIPTION DRUG MONITORING PROGRAM REVIEWED*: Not Applicable *COPY OF PRESCRIPTION DRUG MONITORING REPORT IN PATIENT HOMERO: Not Applicable Instructions: Influenza, Adult, [id number] Care Plan Goals: The patient was advised of the examination and lab results during the visit. The patient was given a liter of IV fluids and an oral dose of Tamiflu while in the ED. The patient was discharged with a script for Tamiflu (75 mg) #9 to take 1 by mouth 2 times per day. The patient should take either Tylenol or ibuprofen for temporary symptom relief. If the patient has any additional symptoms or concerns, the patient should either return to the emergency department or visit her primary care facility. Sepsis Event Note (ED) - Evaluation Sepsis Screening Result: No Definite Risk - Focused Exam Vital Signs: Vital Signs Temp Pulse Resp BP Pulse Ox 08/13/21 16:14 99.3 F 86 20 100/73 95 - My Orders Last 24 Hours: My Active Orders 08/13/21 17:39 Sodium Chloride 0.9% [Normal Saline] 1,000 ml IV .BOLUS - Assessment/Plan Last 24 Hours: My Active Orders 08/13/21 17:39 Sodium Chloride 0.9% [Normal Saline] 1,000 ml IV .BOLUS
== END 2021-08-13 19:10 | disposition home or self-care (01) ==
LOC: DL.ED 15:52
DX: J10.1 Influenza due to other identified influenza virus with other respiratory manifestations (principal); Z20.822 Contact with and (suspected) exposure to COVID-19
CPT/HCPCS: 0240U; 99284; A9270-GY; J7030

== ENCOUNTER 2024-08-29 12:22 | Emergency (ER) | payer MEDICAID ==
[2024-08-29 13:15] VITALS: BP 99/81; PULSE 76
== END 2024-08-29 13:07 | disposition home or self-care (01) ==
LOC: DL.ED 12:22
DX: J18.9 Pneumonia, unspecified organism (principal); J45.909 Unspecified asthma, uncomplicated
CPT/HCPCS: 99283; 99284